=== PATIENT | male | born 1985 | race Caucasian/White ===

== ENCOUNTER → 2018-11-02 10:33 | Outpatient (CLI) | payer MEDICAID, SELFPAY ==
[2018-11-02 13:09] LABS: ALB/GLOB Ratio 1.2 RATIO (0.9-2.4); AST(SGOT) 20 U/L (15-37); Alanine Aminotransfer ALT/SGPT 35 U/L (16-61); Alkaline Phosphatase 79 U/L (45-117); Anion Gap 7 (5-15); BUN 8 mg/dL (7-18); BUN/Creat Ratio 9.4 RATIO (10-20); Calcium,Total 9.2 mg/dL (8.5-10.1); Chloride 108 mmol/L (98-107); Cholesterol 147 mg/dL (200); Creatinine, Serum 0.86 mg/dL (0.70-1.30); EST Glomerular Filtration Rate 109 mL/min (>60); Est Glom Filt Rate - Afr Amer 132 mL/min (>60); Globulin 3.4 g/dL (2.2-4.2); Glucose 98 mg/dL (74-106); High Density Lipoprotein 40 mg/dL; Potassium 3.8 mmol/L (3.5-5.1); Protein, Total 7.4 g/dL (6.4-8.2); Sodium Level 141 mmol/L (136-145); Triglycerides 49 mg/dL; Very Low Density Lipoprotein 10 mg/dL (5-40)
== END ==
PROVIDERS: PCP Family Medicine; Visit Provider Family Medicine
DX: Z13.1 Encounter for screening for diabetes mellitus (principal); Z13.220 Encounter for screening for lipoid disorders
CPT/HCPCS: 36415; 80053; 80061

== ENCOUNTER → 2018-12-07 16:17 | Outpatient (CLI) | payer MEDICAID, SELFPAY ==
[2018-12-07 09:34] VITALS: BMI 31.9
--- NOTE | 2018-12-07 09:45 | VAS_PTH ---
PATIENT: HARSH SCHILLING LOC: [facility] #:[id number] AGE/SX: 39/M ROOM: RE12/07/[address]: NKECHI: 1985 BED: DIS: SPEC #: [id number] RECD: 12/07/18 15:33 STATUS: SILVIA SILVA #: [id number] MIKE: 12/07/18 09:[address]: Vijay Mota DEPT: SURGICAL PATHOLOGY RECD BY: Shahab Birch ENTERED: 12/10/18 09:18 SP TYPE: VAS OTHR DR: Dr. Kavon Walker MD Tissues: A - Vas deferens, NOS B - Vas deferens, NOS Procedures: Surgery Specimen Level II HEADER OPERATION: Partial bilateral vasectomy PRE-OP DIAGNOSIS: Encounter for sterilization Z30.2 TISSUE SUBMITTED: A. Left vas deferens, B. Right vas deferens MICROSCOPIC DIAGNOSIS A. Left vas deferens, segmental vasectomy: Complete cross-section of vas deferens. B. Right vas deferens, segmental vasectomy: Complete cross-section of vas deferens. AM:pily 12/11/18 MICROSCOPIC DESCRIPTION Slides are reviewed. GROSS DESCRIPTION A - Received is one container designated left vas deferens. The specimen consists of a cylindrical segment of pink-solano soft tissue measuring 1 cm in length and 0.2 cm in maximum diameter. The specimen is serially sectioned and totally submitted in one cassette. B - Received is one container designated right vas deferens. The specimen consists of a cylindrical segment of pink-solano soft tissue measuring 0.9 cm in length and 0.2 cm in maximum diameter. The specimen is serially sectioned and totally submitted in one cassette. / AM:pily 12/10/18 TC:4 CPT: 51674 x2
[2019-01-08 10:05] LABS: Semen Analysis Post Vas ABSENT
== END ==
PROVIDERS: Family Provider Family Medicine; PCP Family Medicine; Referring Provider Surgery
DX: Z30.2 Encounter for sterilization (principal)
CPT/HCPCS: 88302; 89321

== ENCOUNTER → 2019-02-01 11:12 | Outpatient (CLI) | payer MEDICAID, SELFPAY ==
[2018-12-07 09:34] VITALS: BMI 31.9
[2019-02-01 14:58] LABS: Semen Analysis Post Vas ABSENT
== END ==
PROVIDERS: Family Provider Family Medicine; PCP Family Medicine; Referring Provider Surgery; Visit Provider Surgery
DX: Z30.2 Encounter for sterilization (principal)
CPT/HCPCS: 89321

== ENCOUNTER 2020-08-28 20:21 | Emergency (ER) | payer MEDICAID, SELFPAY ==
[2020-08-28 20:22] VITALS: BP 147/75; PULSE 108; RESP 16; TEMP 36.3; O2SAT 98; BMI 31.7
[2020-08-28] MEDS: Diphth,Pertuss(Acell),Tet Vac 0.5 ML Vial IM (21:06)
[2020-08-28] MEDS: Lidocaine 1% /Epi 1:100 (20ml) 20 ML Vial INFILT (21:06)
--- NOTE | 2020-08-28 23:09 | EX.ED.GENINJ ---
HPI History of Present Illness Chief Complaint: Head Injury Informant: patient Onset/Context/Timing Onset: Today Mechanism/Context: Blunt Injury Quality of Pain: Burning Location: Left occipital scalp Worsened by: Nothing Relieved by: Pressure Associated Symptoms Associated Symptoms: Negative for Parasthesias, Weakness, Inability to ambulate, Loss of consciousness and Amnesia Narrative Narrative: Patient presents with a head injury that occurred today. Patient states something fell off of a shelf in his garage and hit him on the back of his head. Patient denies any loss of consciousness. Patient states he put his hand back on his head and noticed some bleeding. Patient denies any visual changes. Patient denies any nausea or vomiting. Patient does not remember his last tetanus shot. Patient denies any paresthesias or weakness. Tetanus Immunization: Unknown PFSH PFSH no medical history Home Medications propranolol 10 mg PO PRN PRN 08/28/20 [History Last Taken Unknown] Allergy/AdvReac Type Severity Reaction Status Date / Time No Known Allergies Allergy Verified 08/28/20 20:24 Surgical History History of tonsillectomy Hx of vasectomy Social History Smoking Status: Current every day smoker tobacco type: cigarettes alcohol intake: current substance use type: does not use ROS ROS ED Constitutional Constitutional ED: Denies chills or fever(s) Eyes Eyes: Denies blurry vision or change in vision ENT ENT ED: Denies rhinorrhea or sore throat Cardiovascular Cardiovascular: Denies chest pain or palpitations Respiratory/Chest Respiratory/Chest: Denies cough or dyspnea Gastrointestinal Gastrointestinal: Denies nausea or vomiting Genitourinary Genitourinary ED: Denies dysuria or hematuria Musculoskeletal Musculoskeletal: Reports neck pain; Denies back pain Integumentary Denies abscess or rash Neurologic Neurologic: Reports headache(s); Denies weakness Allergic/Immunologic Allergic/Immunologic ED: Denies mouth swelling or urticaria EXAM Physical Exam Const Vital Signs: 08/28/20 20:22 Temperature 97.4 F L Temperature Source Temporal Pulse Rate 108 H Respiratory Rate 16 Blood Pressure 147/75 H Blood Pressure Mean 99 Pulse Ox 98 Oxygen Delivery Method Room Air Positive well nourished and well developed General Appearance ED: well developed HEENT HEENT Narrative: There is a 3 cm full-thickness linear laceration over the left occipital scalp. There is mild gapping of the wound margins. There are no foreign bodies. There is no bony crepitance or step-off noted. There is no active bleeding. Eyes PERRL and EOMs intact bilaterally Neck full ROM General: Negative for tenderness Neuro oriented x3, CN's II-XII intact bilaterally, moves all extremities, no focal motor deficits and no sensory deficits noted Sensorium / Orientation: alert Psych mental status grossly normal PROC Procedures Lacerations Scalp: Length: 3 cm Depth: Sub Q Shape: Linear Prep: Sterile Conditions and Chlorhexadine Laceration repair: Irrigated, Lidocaine with epi and Local Number of Sutures/[place]: 6 Suture Information: - ([place]) MDM MDM MDM Narrative Medical decision making narrative: Patient given a tetanus booster here. The wound was cleaned and irrigated with copious amounts normal saline. The wound was anesthetized 1% lidocaine with epinephrine. The wound was closed with 6 sherrill under sterile technique. Bacitracin dressing was applied. Patient tolerated the procedure well. Patient was given head injury instructions. Patient was instructed to follow-up with his primary care physician in 5 to 7 days for wound recheck and suture removal. Patient understood and was agreeable with the plan. All questions were answered. Discharge Plan Triage Chief Complaint: Head Injury ED Provider: George Krause Dx/Rx/DC Orders Clinical Impression: Laceration of occipital scalp Instructions: ED Head Injury (Adult), ED Laceration Scalp Stitches or [place] Prescriptions: No Action propranolol 10 mg tablet 10 mg PO PRN PRN (Reason: Anxiety) RF: 0 Primary Care Provider: Shayne Tovar Referrals: Shayne Tovar MD [Primary Care Provider] - 5 Days for suture removal Disposition Disposition: Home, Self Care
[2020-08-28 23:23] VITALS: BP 135/80; PULSE 75; RESP 16
== END 2020-08-28 23:23 | disposition home or self-care (01) ==
PROVIDERS: Emergency Provider Emergency Medicine; PCP Family Medicine
DX: S01.01XA Laceration without foreign body of scalp, initial encounter (principal); F17.210 Nicotine dependence, cigarettes, uncomplicated; X58.XXXA Exposure to other specified factors, initial encounter
CPT/HCPCS: 12002; 90471; 90715; 99283